=== PATIENT | male | born 1960 | race Hispanic/Latino ===

== ENCOUNTER 2016-09-15 22:06 | Emergency (ER) | payer BC, OTHER ==
[2016-09-15 22:41] VITALS: BMI 28.5
[2016-09-15 23:05] LABS: BASO # 0.1 K/uL (0.0-0.2); BASO % 0.9 % (0.0-2.0); EOS # 0.4 K/uL (0.0-0.7); EOS % 4.3 % (0.0-4.0); LYMPH % 30.7 % (20.0-40.0); MEAN CELL VOLUME 83.5 fl (80.0-94.0); MEAN CORPUSCULAR HEMOGLOBIN 28.4 pg (27.0-31.0); MEAN CORPUSCULAR HGB CONC 34.1 g/dL (33.0-37.0); MEAN PLATELET VOLUME 9.8 fl (7.2-11.7); MONO # 0.8 K/uL (0.0-0.8); MONO % 8.4 % (0.0-10.0); NEUT # 5.5 K/uL (1.8-7.0); NEUT % 55.7 % (50.0-75.0); NRBC % 0.1 % (0.0-0.0); RED CELL DISTRIBUTION WIDTH 15.1 % (11.5-14.5); WHITE BLOOD COUNT 9.9 K/uL (4.8-10.8)
[2016-09-15 23:13] LABS: ALB/GLOB RATIO 1.3 (1.0-2.1); ALKALINE PHOSPHATASE 80 U/L (38-126); ALT/SGPT 62 U/L (21-72); AST/SGOT 39 U/L (17-59); BILIRUBIN,TOTAL 0.5 mg/dl (0.2-1.3); BLOOD UREA NITROGEN 23 mg/dl (9-20); CALCIUM 9.1 mg/dL (8.4-10.2); CARBON DIOXIDE 24 mmol/L (22-30); CHLORIDE 105 mmol/L (98-107); GFR AFRICAN-AMERICAN > 60; GLUCOSE,RANDOM 123 mg/dL (75-110); PHOSPHOROUS 4.5 mg/dl (2.5-4.5); POTASSIUM 4.1 MMOL/L (3.6-5.0); SODIUM 141 mmol/l (132-148); TOTAL PROTEIN 7.9 G/DL (6.3-8.2)
--- NOTE | 2016-09-15 23:25 | ED PDOC ---
HPI: SOB/CHF/COPD Time Seen by Provider: 09/15/16 22:19 Chief Complaint (Nursing): Shortness Of Breath Chief Complaint (Provider): Shortness of breath History Per: Patient History/Exam Limitations: no limitations Onset/Duration Of Symptoms: Hrs Current Symptoms Are (Timing): Still Present Quality: Tightness Additional History Per: Patient Additional Complaint(s): The pt is a 56yo male with PMHx of HTN, hypercholesterolemia, presents to the ED for evaluation of an episode of SOB prior to arrival. Pt reports he was outdoors and was in an argument with his over the phone when he suddenly felt very anxious and short of breath. Pt reports he felt tightness in his throat, and states since last month has been having congestion in his throat which he attributes to the changes in weather. Pt additionally reports he was prescribed a workup by his PMD which included bloodwork and a CXR which he has not complete. Currently reports excessive post nasal drip, clear phlegm. Pt denies SOB at present, also denies chest pain, hemoptysis. Pt provides no other medical complaints. Past Medical History Reviewed: Historical Data, Nursing Documentation, Vital Signs Vital Signs: Last Vital Signs Temp 98.5 F 09/15/16 22:13 Pulse 73 09/15/16 22:13 Resp 16 09/15/16 22:13 BP 160/99 H 09/15/16 22:13 Pulse Ox 96 09/15/16 23:34 - Medical History PMH: Hiatal Hernia, HTN, Hypercholesterolemia Denies: Asthma, Hyperthyroidism, Chronic Kidney Disease - Surgical History Surgical History: Appendectomy Other surgeries: bleeding ulcer - Family History Family History: States: Unknown Family Hx, Hypertension - Home Medications Home Medications: Ambulatory Orders Medication Instructions Recorded diaZEpam [Valium] 5 mg PO DAILY PRN 02/19/15 Ferrous Sulfate [Feosol] 325 mg PO TID #0 tab 02/24/15 Pantoprazole [Protonix EC Tab] 40 mg PO BID #0 ect 02/24/15 Sucralfate [Carafate Oral Susp] 1 gm PO QID #0 udc 02/24/15 Albuterol HFA [Ventolin HFA 90 2 puff IH Q4H PRN #1 inh 09/15/16 mcg/actuation (8 g)] Fexofenadine HCl [VivianaNf] 180 mg PO DAILY #30 tab 09/15/16 Fluticasone Propionate [Flonase] 1 spr NS DAILY #1 bot 09/15/16 - Allergies Allergies/Adverse Reactions: Allergies Allergy/AdvReac Type Severity Reaction Status Date / Time iodine Allergy RASH Verified 09/15/16 22:41 Review of Systems ROS Statement: Except As Marked, All Systems Reviewed And Found Negative ENT: Positive for: Other (throat tightness and congestion) Cardiovascular: Negative for: Chest Pain Respiratory: Positive for: Shortness of Breath, Other (phlegm). Negative for: Hemoptysis Physical Exam - Reviewed Nursing Documentation Reviewed: Yes Vital Signs Reviewed: Yes - Physical Exam Appears: Positive for: Well, Non-toxic, No Acute Distress Head Exam: Positive for: ATRAUMATIC, NORMAL INSPECTION, NORMOCEPHALIC Skin: Positive for: Normal Color Neck: Positive for: Normal Cardiovascular/Chest: Positive for: Regular Rate, Rhythm Respiratory: Positive for: Normal Breath Sounds. Negative for: Respiratory Distress Extremity: Positive for: Pedal Edema (trace bilateral lower leg edema. pt reports chronic.) Neurologic/Psych: Positive for: Alert, Oriented, Mood/Affect (mild anxious affect) - Laboratory Results Result Diagrams: 09/15/16 23:02 09/15/16 23:02 - ECG O2 Sat by Pulse Oximetry: 96 (RA) Medical Decision Making Medical Decision Making: Time: 2229 Impression: Anxiety attack and congestion Plan: * CXR * PTT * PT * Reassess Labs and cxr unremarkable reeval at 11pm pt continues to be feel well. dw pt findings and plan of care. Scribe Attestation: Documented by Radha Heath acting as a scribe for Mary Corea MD. Provider Attestation: All medical record entries made by the Scribe were at my direction and personally dictated by me. I have reviewed the chart and agree that the record accurately reflects my personal performance of the history, physical exam, medical decision making, and the department course for this patient. I have also personally directed, reviewed, and agree with the discharge instructions and disposition. Disposition - Clinical Impression Clinical Impression: Anxiety attack, Seasonal allergic rhinitis Counseled Patient/Family Regarding: Studies Performed, Diagnosis, Need For Followup, Rx Given - Disposition Referrals: Farhat Hurtado MD [Medical Doctor] - 09/17/16 Disposition: Routine/Home Disposition Time: 23:50 Condition: STABLE Prescriptions: Albuterol HFA [Ventolin HFA 90 mcg/actuation (8 g)] 2 puff IH Q4H PRN #1 inh PRN Reason: ASTHMA Fexofenadine HCl [VivianaNf] 180 mg PO DAILY #30 tab Fluticasone Propionate [Flonase] 1 spr NS DAILY #1 bot Instructions: Allergic Rhinitis (ED), Stress (ED)
[2016-09-16 00:31] LABS: PARTIAL THROMBOPLASTIN TIME 25.4 SECONDS (23.3-32.5)
[2016-09-16 02:07] VITALS: BP 122/78; PULSE 78; RESP 16; TEMP 98.9; O2SAT 98
--- NOTE | 2016-09-16 09:23 | RAD ---
HISTORY: sob COMPARISON: Chest x-ray performed 02/23/15 TECHNIQUE: Chest PA and lateral FINDINGS: Examination limited by habitus. LUNGS: No focal consolidation. Please note that chest x-ray has limited sensitivity for the detection of pulmonary masses. PLEURA: No significant pleural effusion identified. No definite pneumothorax . CARDIOVASCULAR: Mild cardiomegaly. Tortuous aorta. OSSEOUS STRUCTURES: Degenerative changes of the spine. VISUALIZED UPPER ABDOMEN: Unremarkable. OTHER FINDINGS: None. IMPRESSION: No focal consolidation, significant pleural effusion, or definite pneumothorax identified. Mild cardiomegaly.
--- NOTE | 2016-09-17 01:27 | CARD ---
APPROVED REPORT EKG Measurement Heart [id number] <Conclusion> Normal sinus rhythm Nonspecific intraventricular conduction delay Borderline ECG
== END 2016-09-16 00:05 | disposition home or self-care (01) ==
LOC: H.ER 22:06
DX: J30.2 Other seasonal allergic rhinitis (principal); R06.02 Shortness of breath; E78.00 Pure hypercholesterolemia, unspecified; F41.1 Generalized anxiety disorder; I10 Essential (primary) hypertension; I51.7 Cardiomegaly

== ENCOUNTER 2017-01-15 17:35 | Emergency (ER) | payer OTHER ==
[2017-01-15 17:35] VITALS: BMI 28.5
[2017-01-15 17:43] VITALS: BP 159/90; PULSE 81; RESP 18; TEMP 98.4; O2SAT 97
--- NOTE | 2017-01-15 18:29 | ED PDOC ---
Upper Extremity Pain/Injury Time Seen by Provider: 01/15/17 17:53 Chief Complaint (Nursing): Finger,Hand,&Wrist Chief Complaint (Provider): Hand pain History Per: Patient History/Exam Limitations: no limitations Onset/Duration Of Symptoms: Days (x1) Current Symptoms Are (Timing): Still Present Pain Scale Rating Of: 7 Exacerbating Factor(s): Strenuous Use Of Affected Area Additional Complaint(s): Michael Barrow is a 56 year old male, with a past medical history of hypertension and hypercholesterolemia, who presents to the emergency department complaining of left hand pain associated with swelling onset for 2 days. Patient reports yesterday his finger felt sore and stiff, today he woke up and his whole hand felt stiff. He had a meeting in [place] around 12pm today when he notices his whole hand was swollen. He denies any fever, chills, insect bite or trauma. Patient hasn't had any recent urinary tract infection and is not sexually active. He states he has been typing a lot at work recently and is left hand dominant. No further medical complaints. PMD: Farhat Hurtado Past Medical History Reviewed: Historical Data, Nursing Documentation, Vital Signs Vital Signs: Last Vital Signs Temp 98.4 F 01/15/17 17:39 Pulse 81 01/15/17 17:39 Resp 18 01/15/17 17:39 BP 159/90 H 01/15/17 17:39 Pulse Ox 97 01/15/17 17:39 - Medical History PMH: Hiatal Hernia, HTN, Hypercholesterolemia Denies: Asthma, Hyperthyroidism, Chronic Kidney Disease - Surgical History Surgical History: Appendectomy - Family History Family History: States: Unknown Family Hx, Hypertension - Home Medications Home Medications: Ambulatory Orders Medication Instructions Recorded diaZEpam [Valium] 5 mg PO DAILY PRN 02/19/15 Ferrous Sulfate [Feosol] 325 mg PO TID #0 tab 02/24/15 Pantoprazole [Protonix EC Tab] 40 mg PO BID #0 ect 02/24/15 Sucralfate [Carafate Oral Susp] 1 gm PO QID #0 udc 02/24/15 Albuterol HFA [Ventolin HFA 90 2 puff IH Q4H PRN #1 inh 09/15/16 mcg/actuation (8 g)] Fexofenadine HCl [VivianaNf] 180 mg PO DAILY #30 tab 09/15/16 Fluticasone Propionate [Flonase] 1 spr NS DAILY #1 bot 09/15/16 Cephalexin [cephalexin] 500 mg PO BID #20 cap 01/15/17 Methylprednisolone [Medrol Dose 4 mg PO DAILY #21 mg 01/15/17 Pack (21 tabs)] Tramadol HCl [Ultram] 50 mg PO Q6 #15 tab 01/15/17 - Allergies Allergies/Adverse Reactions: Allergies Allergy/AdvReac Type Severity Reaction Status Date / Time iodine Allergy RASH Verified 09/15/16 22:41 Review of Systems ROS Statement: Except As Marked, All Systems Reviewed And Found Negative Constitutional: Negative for: Fever, Chills, Other (no insect bite or trauma) Musculoskeletal: Positive for: Hand Pain (left hand swelling ) Physical Exam - Reviewed Nursing Documentation Reviewed: Yes Vital Signs Reviewed: Yes - Physical Exam Appears: Positive for: Well, Non-toxic, No Acute Distress Head Exam: Positive for: ATRAUMATIC, NORMAL INSPECTION, NORMOCEPHALIC Skin: Positive for: Normal Color, Warm, Dry Eye Exam: Positive for: Normal appearance Neck: Positive for: Normal, Painless ROM, Supple Respiratory: Negative for: Respiratory Distress Extremity: Positive for: Normal ROM (to left hand), Tenderness ( tenderness to extension but not to flexion.), Swelling (to 3rd digit knuckle ), Other (mild warmth and erythema to left hand) Neurologic/Psych: Positive for: Alert, Oriented. Negative for: Motor/Sensory Deficits - ECG O2 Sat by Pulse Oximetry: 97 (RA) Pulse Ox Interpretation: Normal Medical Decision Making Medical Decision Making: Initial Impression: acute swelling to left hand digits Initial Plan: --Hand left 3 views routine [RAD] --reevaluation -Patient with low likelihood of septic infection. Normal vital signs, no abnormalities shown in X-ray. He has full ROM in digits. Patient will be given Keflex. In case symptoms worsen he will be given steroids and follow up with hand surgeon. Scribe Attestation: Documented by Steven Sanchez, acting as a scribe for Naya MCCORMICK. Provider Scribe Attestation: All medical record entries made by the Scribe were at my direction and personally dictated by me. I have reviewed the chart and agree that the record accurately reflects my personal performance of the history, physical exam, medical decision making, and the department course for this patient. I have also personally directed, reviewed, and agree with the discharge instructions and disposition. Disposition - Clinical Impression Clinical Impression: Hand swelling - Disposition Referrals: Farhat Hurtado MD [Primary Care Provider] - Giovanni Serrano MD [Medical Doctor] - Disposition: Routine/Home Disposition Time: 23:22 Condition: STABLE Prescriptions: Cephalexin [cephalexin] 500 mg PO BID #20 cap Methylprednisolone [Medrol Dose Pack (21 tabs)] 4 mg PO DAILY #21 mg Tramadol HCl [Ultram] 50 mg PO Q6 #15 tab Instructions: Cellulitis (ED), Tendinitis (ED) Forms: [facility] ([place]), [facility] School/Work Excuse
--- NOTE | 2017-01-16 14:13 | RAD ---
PROCEDURE: Left Hand Radiographs. HISTORY: Pain. No history of recent/ related trauma provided Anatomic area of interest: Metacarpal phalangeal junction region COMPARISON: None. FINDINGS: BONES: Normal. No fracture. JOINTS: Osteoarthritic changes moderate -severe proximal interphalangeal joint distribution and carpal 1st metacarpal joint. SOFT TISSUES: Diffuse soft tissue swelling primarily affecting phalanges and in particular 2nd 3rd and 4th digits. OTHER FINDINGS: None. IMPRESSION: Osteoarthritic changes, of soft tissue swelling described above. No acute findings related to/accounting for the clinical presentation.
== END 2017-01-15 19:29 | disposition home or self-care (01) ==
LOC: SUPCPDRO 17:35 → H.ER 17:35
DX: M79.642 Pain in left hand (principal); M79.89 Other specified soft tissue disorders; I10 Essential (primary) hypertension

== ENCOUNTER 2018-04-11 16:30 | Emergency (ER) | payer OTHER ==
[2018-04-11 16:30] VITALS: BMI 30.5
[2018-04-11 16:51] VITALS: TEMP 98.2
--- NOTE | 2018-04-11 17:24 | ED PDOC ---
HPI: Chest Pain Time Seen by Provider: 04/11/18 16:57 Chief Complaint (Nursing): Upper Extremity Problem/Injury History Per: Patient Onset/Duration Of Symptoms: Days (1) Current Symptoms Are (Timing): Intermittent Episodes Severity: Mild Quality: Sharp Additional Complaint(s): Left axillary pain earlier todat. Has been stressed lately. Denies SOB Past Medical History Vital Signs: Last Vital Signs Temp 98.2 F 04/11/18 16:49 Pulse 74 04/11/18 16:49 Resp 16 04/11/18 16:49 BP 154/94 H 04/11/18 16:49 Pulse Ox 98 04/11/18 16:49 - Medical History PMH: Hiatal Hernia, HTN, Hypercholesterolemia Denies: Asthma, Hyperthyroidism, Chronic Kidney Disease - Surgical History Surgical History: Appendectomy - Family History Family History: States: Unknown Family Hx, Hypertension - Home Medications Home Medications: Ambulatory Orders Medication Instructions Recorded diaZEpam [Valium] 5 mg PO DAILY PRN 02/19/15 Ferrous Sulfate [Feosol] 325 mg PO TID #0 tab 02/24/15 Pantoprazole [Protonix EC Tab] 40 mg PO BID #0 ect 02/24/15 Sucralfate [Carafate Oral Susp] 1 gm PO QID #0 udc 02/24/15 Albuterol HFA [Ventolin HFA 90 2 puff IH Q4H PRN #1 inh 09/15/16 mcg/actuation (8 g)] Fexofenadine HCl [VivianaNf] 180 mg PO DAILY #30 tab 09/15/16 Fluticasone Propionate [Flonase] 1 spr NS DAILY #1 bot 09/15/16 Cephalexin [cephalexin] 500 mg PO BID #20 cap 01/15/17 Methylprednisolone [Medrol Dose 4 mg PO DAILY #21 mg 01/15/17 Pack (21 tabs)] Tramadol HCl [Ultram] 50 mg PO Q6 #15 tab 01/15/17 - Allergies Allergies/Adverse Reactions: Allergies Allergy/AdvReac Type Severity Reaction Status Date / Time iodine Allergy RASH Verified 04/11/18 16:48 Review of Systems ROS Statement: Except As Marked, All Systems Reviewed And Found Negative Cardiovascular: Positive for: Chest Pain Physical Exam - Reviewed Nursing Documentation Reviewed: Yes Vital Signs Reviewed: Yes - Physical Exam Appears: Positive for: Non-toxic, No Acute Distress Head Exam: Positive for: ATRAUMATIC, NORMAL INSPECTION, NORMOCEPHALIC Skin: Positive for: Normal Color, Warm, DRY Eye Exam: Positive for: EOMI, Normal appearance, PERRL ENT: Positive for: Normal ENT Inspection Neck: Positive for: Normal, Painless ROM Cardiovascular/Chest: Positive for: Regular Rate, Rhythm. Negative for: Chest Non Tender (Left axillary tenderness) Respiratory: Positive for: CNT, Normal Breath Sounds Gastrointestinal/Abdominal: Positive for: Normal Exam, Soft Back: Positive for: Normal Inspection Extremity: Positive for: Normal ROM Neurologic/Psych: Positive for: Alert, Oriented - Laboratory Results Result Diagrams: 04/11/18 17:30 04/11/18 17:30 - ECG O2 Sat by Pulse Oximetry: 98 Medical Decision Making Medical Decision Making: Stress test 01/2017 nl Disposition - Clinical Impression Clinical Impression: Anxiety - Patient ED Disposition Is Patient to be Admitted: No Counseled Patient/Family Regarding: Studies Performed, Diagnosis, Need For Followup - Disposition Referrals: Michael Woodall MD [Staff Provider] - Disposition: Routine/Home Disposition Time: 18:43 Condition: FAIR Instructions: Anxiety, Adult (DC) Forms: [employer] ([place])
[2018-04-11 17:51] LABS: BASO # 0.1 K/uL (0.0-0.2); BASO % 0.8 % (0.0-2.0); EOS # 0.2 K/uL (0.0-0.7); EOS % 2.3 % (0.0-4.0); HEMOGLOBIN 15.7 g/dL (12.0-18.0); LYMPH # 2.4 K/uL (1.0-4.3); LYMPH % 23.3 % (20.0-40.0); MEAN CELL VOLUME 87.8 fl (80.0-94.0); MEAN CORPUSCULAR HEMOGLOBIN 29.6 pg (27.0-31.0); MEAN CORPUSCULAR HGB CONC 33.7 g/dL (33.0-37.0); MEAN PLATELET VOLUME 9.6 fl (7.2-11.7); MONO # 0.7 K/uL (0.0-0.8); MONO % 7.1 % (0.0-10.0); NEUT # 6.7 K/uL (1.8-7.0); NEUT % 66.5 % (50.0-75.0); NRBC % 0.3 % (0.0-0.0); RBC 5.31 Mil/uL (4.40-5.90); RED CELL DISTRIBUTION WIDTH 13.9 % (11.5-14.5); WHITE BLOOD COUNT 10.1 K/uL (4.8-10.8)
--- NOTE | 2018-04-11 18:01 | RAD ---
HISTORY: Chest pain COMPARISON: Chest x-ray performed 09/15/16 TECHNIQUE: Chest PA and lateral FINDINGS: Examination limited by habitus. LUNGS: No focal consolidation. Please note that chest x-ray has limited sensitivity for the detection of pulmonary masses. PLEURA: No significant pleural effusion identified. No definite pneumothorax . CARDIOVASCULAR: Heart size appears within normal limits. No atherosclerotic calcification present. OSSEOUS STRUCTURES: Degenerative changes of the spine. Osseous demineralization. VISUALIZED UPPER ABDOMEN: Unremarkable. OTHER FINDINGS: None. IMPRESSION: No focal consolidation identified.
[2018-04-11 18:05] LABS: ALB/GLOB RATIO 1.3 (1.0-2.1); ALBUMIN 4.3 g/dL (3.5-5.0); ALT/SGPT 42 U/L (21-72); AST/SGOT 27 U/L (17-59); BLOOD UREA NITROGEN 20 mg/dl (9-20); CALCIUM 9.1 mg/dL (8.4-10.2); GFR NON-AFRICAN AMERICAN > 60
[2018-04-11 19:07] VITALS: BP 141/70; PULSE 71; RESP 19; O2SAT 99
--- NOTE | 2018-04-12 15:05 | CARD ---
APPROVED REPORT Date of service: 04/11/2018 EKG Measurement Heart [id number] <Conclusion> Normal sinus rhythm Normal ECG
== END 2018-04-11 19:07 | disposition home or self-care (01) ==
LOC: H.ER 16:30
DX: F41.9 Anxiety disorder, unspecified (principal); I10 Essential (primary) hypertension; E78.00 Pure hypercholesterolemia, unspecified

== ENCOUNTER 2018-08-08 18:20 | Emergency (ER) | payer OTHER ==
--- NOTE | 2018-08-08 18:27 | ED PDOC ---
HPI: Abdomen Time Seen by Provider: 08/08/18 18:23 History Per: Patient Onset/Duration Of Symptoms: Days (3) Current Symptoms Are (Timing): Still Present Severity: Moderate Location Of Pain/Discomfort: Other (Left flank) Quality Of Discomfort: Sharp Associated Symptoms: Back Pain. denies: Fever, Nausea, Vomiting, Diarrhea Exacerbating Factors: Movement Additional Complaint(s): Left flank pain x 3 days.Has been coughing alot lately which makes pain worse.denies SOB. No NVD. No urinary sxs. Past Medical History - Medical History PMH: Anxiety, Hiatal Hernia, HTN, Hypercholesterolemia Denies: Asthma, Hyperthyroidism, Chronic Kidney Disease - Surgical History Surgical History: Appendectomy - Family History Family History: States: Unknown Family Hx, Hypertension - Home Medications Home Medications: Ambulatory Orders Medication Instructions Recorded diaZEpam [Valium] 5 mg PO DAILY PRN 02/19/15 Ferrous Sulfate [Feosol] 325 mg PO TID #0 tab 02/24/15 Pantoprazole [Protonix EC Tab] 40 mg PO BID #0 ect 02/24/15 Sucralfate [Carafate Oral Susp] 1 gm PO QID #0 udc 02/24/15 Albuterol HFA [Ventolin HFA 90 2 puff IH Q4H PRN #1 inh 09/15/16 mcg/actuation (8 g)] Fexofenadine HCl [VivianaNf] 180 mg PO DAILY #30 tab 09/15/16 Fluticasone Propionate [Flonase] 1 spr NS DAILY #1 bot 09/15/16 Cephalexin [cephalexin] 500 mg PO BID #20 cap 01/15/17 Methylprednisolone [Medrol Dose 4 mg PO DAILY #21 mg 01/15/17 Pack (21 tabs)] Tramadol HCl [Ultram] 50 mg PO Q6 #15 tab 01/15/17 Promethazine/Codeine 5 ml PO Q8 #60 ml 08/08/18 [Codeine/Promethazine 10 MG/5 Ml-6.25 MG/5 Ml] - Allergies Allergies/Adverse Reactions: Allergies Allergy/AdvReac Type Severity Reaction Status Date / Time iodine Allergy RASH Verified 04/11/18 16:48 Review of Systems Constitutional: Negative for: Fever Gastrointestinal: Positive for: Abdominal Pain. Negative for: Nausea, Diarrhea Genitourinary Male: Negative for: Dysuria, Frequency Musculoskeletal: Positive for: Back Pain Physical Exam - Physical Exam Appears: Positive for: Non-toxic, No Acute Distress Skin: Positive for: Normal Color, Warm. Negative for: Rash Back: Positive for: Normal Inspection, Other (Leftb flank tenderness). Negative for: Vertebral Tenderness Disposition - Clinical Impression Clinical Impression: Muscle strain, Back pain - Patient ED Disposition Is Patient to be Admitted: No Counseled Patient/Family Regarding: Studies Performed, Diagnosis, Need For Followup, Rx Given - Disposition Referrals: Farhat Hurtado MD [Medical Doctor] - Disposition: Routine/Home Disposition Time: 19:36 Condition: FAIR Prescriptions: Promethazine/Codeine [Codeine/Promethazine 10 MG/5 Ml-6.25 MG/5 Ml] 5 ml PO Q8 #60 ml Instructions: Muscle Strain
[2018-08-08 18:34] VITALS: BP 127/85; PULSE 70; RESP 17; TEMP 98.8; O2SAT 96
--- NOTE | 2018-08-08 18:45 | RAD ---
Date of service: 08/08/2018 HISTORY: Left sided pain COMPARISON: 04/11/2018 TECHNIQUE: Chest PA and lateral views FINDINGS: LUNGS: No active pulmonary disease. PLEURA: No significant pleural effusion identified. No pneumothorax apparent. CARDIOVASCULAR: No aortic atherosclerotic calcification present. Normal cardiac size. No pulmonary vascular congestion. OSSEOUS STRUCTURES: No significant abnormalities. VISUALIZED UPPER ABDOMEN: Normal. OTHER FINDINGS: None. IMPRESSION: No active disease.
[2018-08-08 20:00] LABS: URINE BACTERIA RARE (<OCC); URINE BILIRUBIN NEGATIVE (NEGATIVE); URINE BLOOD NEGATIVE (NEGATIVE); URINE CLARITY SLIGHTY-CLOUDY (Clear); URINE GLUCOSE (UA) NEG (NEGATIVE); URINE LEUKOCYTE ESTERASE NEG Leu/uL (Negative); URINE PROTEIN 100 mg/dL (NEGATIVE); URINE UROBILINOGEN 0.2-1.0 mg/dL (0.2-1.0)
[2018-08-08 20:55] LABS: URINE COLOR YELLOW (YELLOW)
--- NOTE | 2018-08-09 09:06 | CT ---
Date of service: 08/08/2018 PROCEDURE: CT Abdomen and Pelvis without intravenous contrast HISTORY: r/o kidney stone COMPARISON: CT scan of the abdomen and pelvis dated 02/19/2015 TECHNIQUE: Contiguous images were obtained from the domes of the diaphragms to the upper thighs without the administration of intravenous contrast. Oral contrast was not administered. Radiation dose: Total exam DLP = 750.25 mGy-cm. This CT exam was performed using one or more of the following dose reduction techniques: Automated exposure control, adjustment of the mA and/or kV according to patient size, and/or use of iterative reconstruction technique. FINDINGS: LOWER THORAX: 3 mm right lower lobe nodule (series 3, image 3). Stable 3 mm right middle lobe nodule (series 3, image 9). Left lower lobe subsegmental linear atelectasis. No focal consolidation or pleural effusion. LIVER: Diffuse hepatic steatosis. No gross lesion or ductal dilatation. GALLBLADDER AND BILE DUCTS: Minimal calcified cholelithiasis without wall thickening or pericholecystic fluid. PANCREAS: Unremarkable. No gross lesion or ductal dilatation. SPLEEN: Unremarkable. ADRENALS: Unremarkable. No mass. KIDNEYS AND URETERS: Unremarkable. No hydronephrosis. No solid mass. VASCULATURE: Unremarkable. No aortic aneurysm. Aortic atherosclerotic calcification and mural plaque present. BOWEL: Postsurgical changes involving the stomach. Mild sigmoid diverticulosis. No obstruction. No gross mural thickening. APPENDIX: No findings to suggest acute appendicitis. PERITONEUM: Bilateral fat containing inguinal hernias. No free fluid. No free air. LYMPH NODES: Unremarkable. No enlarged lymph nodes. BLADDER: Thick walled, underdistended bladder. REPRODUCTIVE: Unremarkable. BONES: L5-S1 degenerative changes. No acute fracture. OTHER FINDINGS: None. IMPRESSION: No nephrolithiasis or evidence of recently passed genitourinary calculus. No acute abdominal pelvic pathology. Additional stable findings as above.
== END 2018-08-08 20:04 | disposition home or self-care (01) ==
LOC: H.ER 18:20
DX: S39.012A Strain of muscle, fascia and tendon of lower back, initial encounter (principal); I10 Essential (primary) hypertension; X58.XXXA Exposure to other specified factors, initial encounter